=== PATIENT | female | born 1945 | race Caucasian/White ===

== ENCOUNTER → 2017-06-23 11:12 | Outpatient (CLI) | payer MEDICARE, SELFPAY ==
[2017-06-23 11:19] LABS: Adenovirus,PCR Not Detected (NotDetected); Bordetella Pertussis Not Detected (NotDetected); Chlamydophila Pneumoniae, PCR Not Detected (NotDetected); Coronavirus 229E Not Detected (NotDetected); Coronavirus NL63 Not Detected (NotDetected); Coronavirus OC43 Not Detected (NotDetected); Coronovirus HKU1,PCR Not Detected (NotDetected); Human Metapneumovirus Not Detected (NotDetected); Influenza A, PCR Not Detected (NotDetected); Influenza AH1, 2009 Not Detected (NotDetected); Influenza AH1, PCR Not Detected (NotDetected); Influenza AH3,PCR Not Detected (NotDetected); Influenza B, PCR Not Detected (NotDetected); Mycoplasma Pneumoniae, PCR Not Detected (NotDected); Parainfluenza 1, PCR Not Detected (NotDetected); Parainfluenza 2, PCR Not Detected (NotDetected); Parainfluenza 3, PCR Not Detected (NotDetected); Parainfluenza 4, PCR Not Detected (NotDetected); Respiratory Syncytial Virus Not Detected (NotDetected)
[2017-06-23 13:50] LABS: Basophils # 0.1 K/mm3 (0-0.2); Basophils % 0.8 % (0.1-2.0); Eosinophils # 0.2 K/mm3 (0.0-0.4); Eosinophils % 2.4 % (0.1-12.0); Hematocrit 40.9 % (37.0-47.0); Hemoglobin 13.2 g/dL (12.2-16.2); Lymphocytes # 4.6 K/mm3 (0.7-4.5); Mean Corpuscular HGB Conc 32.2 g/dL (31.8-35.4); Mean Corpuscular Hemoglobin 31.4 pg (27.0-31.2); Mean Corpuscular Volume 97.7 fl (81-99); Mean Platelet Volume 8.5 fl (7.4-10.4); Monocytes # 0.6 K/mm3 (0.1-1.0); Monocytes % 5.9 % (1.7-9.3); Neutrophils # 4.3 K/mm3 (1.8-7.8); Neutrophils % 43.9 % (37.0-80.0); Platelet Count 373 K/mm3 (142-424); Red Blood Count 4.19 M/mm3 (4.20-5.40); Red Cell Distribution Width 12.6 % (11.5-17.5); White Blood Count 9.7 K/mm3 (4.8-10.8)
[2017-06-23 14:00] LABS: Erythrocyte Sedimentation Rate 12 mm/hr (0-30)
[2017-06-23 14:16] LABS: Monoscreen (Rapid) Negative (Negative)
[2017-06-23 14:32] LABS: Alanine Aminotransferase 28 U/L (12-78); Albumin Level 3.7 gm/dL (3.4-5.0); Albumin/Globulin Ratio 1.2 (1.1-1.8); Alkaline Phosphatase 117 U/L (46-116); Anion Gap 11.3 mEq/L (5-15); Aspartate Amino Transferase 15 U/L (15-37); Bilirubin,Total 0.2 mg/dL (0.2-1.0); Blood Urea Nitrogen 17 mg/dL (7-18); Carbon Dioxide 29 mmol/L (21.0-32.0); Chloride 107 mmol/L (98-107); Cholesterol 233 mg/dL (140-200); Creatinine,Serum 0.87 mg/dL (0.55-1.02); Estimated Glomerular Filt Rate 64 ml/min (>60); GFR (African American) 77 ML/MIN (>60); Globulin 3.2 gm/dl (1.3-3.2); Glucose 82 mg/dL (74-106); HDL Cholesterol 78 mg/dL (29-89); LDL Cholesterol 140 mg/dL (0-130); Potassium 4.3 mmoL/L (3.5-5.1); Sodium 143 mmol/L (136-145); Thyroid Stimulating Hormone 2.61 uIU/ml (0.358-3.740); Total Protein,Serum 6.9 gm/dL (6.4-8.2); Triglycerides 74 mg/dL (30-200); VLDL Cholesterol 15 mg/dL (0-40)
[2017-06-23 14:40] LABS: C-Reactive Protein < 0.2 mg/L (0.0-0.9)
[2017-06-23 15:09] LABS: Rhinovirus/Enterovirus Detected (NotDetected)
[2017-06-24 18:26] LABS: Antinuclear Antibodies, IFA Negative (.); EBV Ab VCA, IgM <36.0 U/mL (0.0-35.9); Epstein-Barr Virus Early Ag Ab <9.0 U/mL (0.0-8.9); Vitamin B12 228 pg/mL (232-1245)
== END ==
PROVIDERS: PCP Nurse Practitioner Family; Visit Provider Nurse Practitioner Family
DX: R05 Cough (principal); I10 Essential (primary) hypertension; R53.81 Other malaise; R21 Rash and other nonspecific skin eruption
CPT/HCPCS: 36415; 80053; 80061; 82607; 84443; 85025; 85651; 86038; 86140; 86318; 86663; 86664; 86665; 87486; 87581; 87633; 87798

== ENCOUNTER → 2018-05-03 11:43 | Outpatient (CLI) | payer MEDICARE, SELFPAY ==
--- NOTE | 2018-05-03 11:48 | NVE_ITS ---
Venous Exam Indications: 729.5 Pain in limb. IMPRESSIONS 1. There is no evidence of significant Reflux. 2. No evidence of deep or superficial vein thrombosis involving the right lower extremity Right lower extremity venous duplex evaluation. Doppler flow study including spectral analysis, color and braga scale imaging. Location: Vascular laboratory. Patient status: Outpatient. Tables: Venous flow and imaging: + +-------+ + Location Overall Flow properties + +-------+ + Right common femoral Patent Normal phasicity; spontaneous; normal augmentation; compressible + +-------+ + Right saphenofemoral junction Patent Compressible + +-------+ + Right profunda femoral Patent Compressible + +-------+ + Right femoral Patent Normal phasicity; spontaneous; normal augmentation; compressible + +-------+ + Right greater saphenous Patent Normal phasicity; spontaneous; normal augmentation; compressible + +-------+ + Right popliteal Patent Normal phasicity; spontaneous; normal augmentation; compressible + +-------+ + Right posterior tibial Patent Compressible + +-------+ + Right peroneal Patent Compressible + +-------+ + Right gastrocnemius Patent Compressible + +-------+ + Right soleal Patent Compressible + +-------+ + (Report amended ) Electronically signed by: Edmar Wall [id number]
--- NOTE | 2018-05-03 12:46 | XR_ITS ---
XR knee RT 3V HISTORY: ITS.REASON: RT LEG PAIJN ORDERING PHYSICIAN: Mary Dobbins PATIENT AGE: 72 years COMPARISON: None FINDINGS: No fracture or dislocation. No lytic or blastic change. Normal mineralization. There are mild osteoarthritic changes of the medial compartment with slight decrease in the joint space and minimal osteophyte formation. Otherwise negative. IMPRESSION: Mild osteoarthritis of the medial compartment
--- NOTE | 2018-05-03 12:46 | XR_ITS ---
XR ankle RT min 3V HISTORY: Right ankle pain ORDERING PHYSICIAN: Mary Dobbins PATIENT AGE: 72 years Comparison: None FINDINGS: No fracture or dislocation. No lytic or blastic change. There is normal mineralization.. The joint spaces are well-preserved. No significant degenerative/arthritic changes. No erosive changes evident. There is a well-circumscribed small calcific density at the tip of the lateral malleolus and may be due to an old avulsion fracture. No acute fracture evident. No soft tissue swelling. IMPRESSION: 1. No acute finding. 2. Old lateral malleolus avulsion fracture
--- NOTE | 2018-05-03 12:47 | XR_ITS ---
XR hip RT 2-3V w/pelvis HISTORY: ITS.REASON: RT LEG PAIN ORDERING PHYSICIAN: Mary Dobbins PATIENT AGE: 72 years COMPARISON: None FINDINGS: No fracture or dislocation is evident. No significant degenerative change. No lytic or blastic change. Unremarkable soft tissues IMPRESSION: Negative hip
--- NOTE | 2018-05-03 12:47 | XR_ITS ---
XR femur RT 2V CLINICAL INDICATION: ITS.REASON: RT LEG PAIN ORDERING PHYSICIAN: Mary Dobbins PATIENT AGE: 72 years Comparison: None FINDINGS: No fracture or dislocation. No lytic or blastic change. There are mild osteoarthritic changes at the medial compartment of the knee IMPRESSION: Mild osteoarthritis of the medial compartment of the knee otherwise negative femur
--- NOTE | 2018-05-03 12:47 | XR_ITS ---
EXAM: XR lumbar spine min 4V HISTORY: Pain ORDERING PHYSICIAN: Mary Dobbins PATIENT AGE: 72 years COMPARISON: None FINDINGS: Normal alignment. No fracture or dislocation. No lytic or blastic change. There is minimal lumbar curvature convex left. Mild degenerative disc disease is present at L3-L4 and L4-L5 with moderate degenerative disc disease at L5-S1. There are mild facet hypertrophic changes at L5-S1. IMPRESSION: 1. No acute finding. 2. Lumbar spondylosis with degenerative disc disease and facet arthritic change
[2018-05-03 12:49] LABS: Basophils # 0.1 K/mm3 (0-0.2); Basophils % 1.2 % (0.1-2.0); Eosinophils # 0.1 K/mm3 (0.0-0.4); Eosinophils % 1.3 % (0.1-12.0); Hematocrit 40.5 % (37.0-47.0); Hemoglobin 12.5 g/dL (12.2-16.2); Lymphocytes # 3.7 K/mm3 (0.7-4.5); Lymphocytes % 43.3 % (10-50); Mean Corpuscular Hemoglobin 30.5 pg (27.0-31.2); Mean Corpuscular Volume 98.4 fl (81-99); Mean Platelet Volume 7.6 fl (7.4-10.4); Monocytes # 0.5 K/mm3 (0.1-1.0); Monocytes % 5.4 % (1.7-9.3); Neutrophils # 4.1 K/mm3 (1.8-7.8); Neutrophils % 48.8 % (37.0-80.0); Platelet Count 331 K/mm3 (142-424); Red Blood Count 4.11 M/mm3 (4.20-5.40); Red Cell Distribution Width 13.1 % (11.5-17.5); White Blood Count 8.4 K/mm3 (4.8-10.8)
--- NOTE | 2018-05-03 12:49 | XR_ITS ---
XR tibia fibula RT 2V CLINICAL INDICATION: ITS.REASON: RT LEG PAIN ORDERING PHYSICIAN: Mary Dobbins PATIENT AGE: 72 years Comparison: None FINDINGS: Minimal osteoarthritic change of the medial compartment of the knee. Old avulsion fracture of the tip of the lateral malleolus. Remaining tib-fib has an unremarkable appearance. IMPRESSION: No acute finding
[2018-05-03 13:19] LABS: D-Dimer 105 ng/mL (0-400)
[2018-05-03 13:56] LABS: Erythrocyte Sedimentation Rate 18 mm/hr (0-30)
[2018-05-03 14:17] LABS: Alanine Aminotransferase 26 U/L (12-78); Albumin Level 3.8 gm/dL (3.4-5.0); Albumin/Globulin Ratio 1.2 (1.1-1.8); Alkaline Phosphatase 101 U/L (46-116); Aspartate Amino Transferase 16 U/L (15-37); Bilirubin,Total 0.2 mg/dL (0.2-1.0); Blood Urea Nitrogen 9 mg/dL (7-18); Calcium 9.4 mg/dL (8.5-10.1); Carbon Dioxide 30 mmol/L (21.0-32.0); Chloride 105 mmol/L (98-107); Chol/HDL Ratio 3.5 (1-3.5); Cholesterol 238 mg/dL (140-200); Creatinine,Serum 0.79 mg/dL (0.55-1.02); Estimated Glomerular Filt Rate 71 ml/min (>60); GFR (African American) 86 ML/MIN (>60); Globulin 3.2 gm/dl (1.3-3.2); Glucose 85 mg/dL (74-106); HDL Cholesterol 68 mg/dL (29-89); LDL Cholesterol 135 mg/dL (0-130); Sodium 144 mmol/L (136-145); Triglycerides 175 mg/dL (30-200); VLDL Cholesterol 35 mg/dL (0-40)
== END ==
PROVIDERS: PCP Nurse Practitioner Family; Visit Provider Nurse Practitioner Family
DX: M79.604 Pain in right leg (principal); M25.551 Pain in right hip; M79.10 Myalgia, unspecified site; E78.00 Pure hypercholesterolemia, unspecified
CPT/HCPCS: 36415; 72110; 73502; 73552; 73562; 73590; 73610; 80053; 80061; 83880; 85025; 85378; 85651; 93971

== ENCOUNTER → 2022-08-16 23:30 | Outpatient (CLI) | payer MEDICARE, SELFPAY ==
[2022-08-16 16:56] LABS: Basophils # 0.3 K/mm3 (0-0.2); Basophils % 2.9 % (0.1-2.0); Eosinophils # 0.3 K/mm3 (0.0-0.4); Eosinophils % 2.4 % (0.1-12.0); Hematocrit 44.3 % (37.0-47.0); Hemoglobin 14.2 g/dL (12.2-16.2); Lymphocytes # 3.9 K/mm3 (0.7-4.5); Lymphocytes % 36.2 % (10-50); Mean Corpuscular Hemoglobin 31.7 pg (27.0-31.2); Mean Platelet Volume 8.9 fl (7.4-10.4); Monocytes # 0.4 K/mm3 (0.1-1.0); Neutrophils # 5.9 K/mm3 (1.8-7.8); Neutrophils % 54.5 % (37.0-80.0); Platelet Count 363 K/mm3 (142-424); Red Blood Count 4.48 M/mm3 (4.20-5.40); Red Cell Distribution Width 13.1 % (11.5-17.5); White Blood Count 10.8 K/mm3 (4.8-10.8)
[2022-08-16 17:00] LABS: Alanine Aminotransferase 20 U/L (12-78); Albumin Level 4.5 g/dl (3.5-5.0); Albumin/Globulin Ratio 1.8 (1.1-1.8); Alkaline Phosphatase 105 U/L (38-126); Anion Gap 12.4 mEq/L (5-15); Aspartate Amino Transferase 29 U/L (14-36); Bilirubin,Total 0.6 mg/dl (0.2-1.3); Blood Urea Nitrogen 15 mg/dl (7-17); Calcium 9.2 mg/dl (8.4-10.2); Carbon Dioxide 28 mmol/L (22.0-30.0); Chloride 102 mmol/L (98-107); Estimated Glomerular Filt Rate 61 ml/min (>60); GFR (African American) 73 ML/MIN (>60); Globulin 2.5 g/dL (1.3-3.2); Glucose 107 mg/dl (74-100); Potassium 4.4 mmoL/L (3.5-5.1); Sodium 138 mmol/L (136-145)
[2022-08-16 17:17] LABS: T4 (Thyroxine) 7.3 ug/dl (5.53-11.0)
[2022-08-16 17:51] LABS: Erythrocyte Sedimentation Rate 13 mm/hr (0-30)
[2022-08-19 23:52] LABS: Antinuclear Antibodies (ANA) NEGATIVE
== END ==
PROVIDERS: PCP Family Medicine; Visit Provider Family Medicine
DX: L65.9 Nonscarring hair loss, unspecified (principal); R63.4 Abnormal weight loss
CPT/HCPCS: 80053; 84436; 85025; 85651; 86038

== ENCOUNTER 2022-09-15 15:21 | Emergency (ER) | payer MEDICARE, SELFPAY ==
[2022-09-15 15:23] VITALS: BP 149/64; PULSE 75; RESP 17; TEMP 36.8; O2SAT 97; BMI 21.4
--- NOTE | 2022-09-15 15:45 | CT_ITS ---
PROCEDURE INFORMATION: Exam: CT Head Without Contrast Exam date and time: 09/15/2022 3:48 PM Age: 76 years old Clinical indication: Altered mental status/memory loss; Additional info: Changes in mental status TECHNIQUE: Imaging protocol: Computed tomography of the head without contrast. Radiation optimization: All CT scans at this facility use at least one of these dose optimization techniques: automated exposure control; mA and/or kV adjustment per patient size (includes targeted exams where dose is matched to clinical indication); or iterative reconstruction. REPORTING DATA: Count of CT and Cardiac NM exams in prior 12 months: This patient has received 0 known CTs and 0 known cardiac nuclear medicine studies in the 12 months prior to the current study. COMPARISON: No relevant prior studies available. FINDINGS: Brain: Age-related involutional changes and chronic microvascular ischemic disease. No evidence for acute transcortical infarct. No mass effect or midline shift. No extra-axial collection. No acute intracranial hemorrhage. Basal cisterns are patent. Cerebral ventricles: No ventriculomegaly. Paranasal sinuses: Visualized sinuses are unremarkable. No fluid levels. Mastoid air cells: Visualized mastoid air cells are well aerated. Orbital cavities: Bilateral cataract surgery. Bones/joints: Unremarkable. No acute fracture. Soft tissues: Unremarkable. IMPRESSION: No evidence for acute transcortical infarct, acute intracranial hemorrhage, or mass effect.
[2022-09-15 16:33] LABS: Alanine Aminotransferase 27 U/L (12-78); Albumin Level 4.5 g/dl (3.5-5.0); Albumin/Globulin Ratio 1.6 (1.1-1.8); Alkaline Phosphatase 85 U/L (38-126); Anion Gap 8.8 mEq/L (5-15); Aspartate Amino Transferase 34 U/L (14-36); Bilirubin,Total 0.5 mg/dl (0.2-1.3); Blood Urea Nitrogen 10 mg/dl (7-17); Calcium 9.4 mg/dl (8.4-10.2); Carbon Dioxide 29 mmol/L (22.0-30.0); Chloride 108 mmol/L (98-107); Creatinine Clearance Estimated 39 mL/min (50-200); Estimated Glomerular Filt Rate 70 ml/min (>60); GFR (African American) 84 ML/MIN (>60); Globulin 2.8 g/dL (1.3-3.2); Glucose 97 mg/dl (74-100); Potassium 3.8 mmoL/L (3.5-5.1); Sodium 142 mmol/L (136-145); Total Protein,Serum 7.3 g/dl (6.3-8.2)
[2022-09-15 16:34] LABS: Basophils # 0.1 K/mm3 (0-0.2); Basophils % 1.2 % (0.1-2.0); Eosinophils # 0.3 K/mm3 (0.0-0.4); Eosinophils % 3.1 % (0.1-12.0); Hematocrit 44.1 % (37.0-47.0); Hemoglobin 13.8 g/dL (12.2-16.2); Lymphocytes # 3.4 K/mm3 (0.7-4.5); Lymphocytes % 39.6 % (10-50); Mean Corpuscular HGB Conc 31.2 g/dL (31.8-35.4); Mean Corpuscular Hemoglobin 31.2 pg (27.0-31.2); Mean Corpuscular Volume 99.8 fl (81-99); Mean Platelet Volume 8.4 fl (7.4-10.4); Monocytes # 0.5 K/mm3 (0.1-1.0); Monocytes % 5.2 % (1.7-9.3); Neutrophils # 4.4 K/mm3 (1.8-7.8); Neutrophils % 50.9 % (37.0-80.0); Platelet Count 348 K/mm3 (142-424); Red Blood Count 4.42 M/mm3 (4.20-5.40); Red Cell Distribution Width 13.3 % (11.5-17.5); White Blood Count 8.7 K/mm3 (4.8-10.8)
--- NOTE | 2022-09-15 16:56 | CT_ITS ---
PROCEDURE INFORMATION: Exam: CTA Head With Contrast, Arteriography Exam date and time: 09/15/2022 5:18 PM Age: 76 years old Clinical indication: Memory loss; Additional info: Word finding difficulty TECHNIQUE: Imaging protocol: Computed tomographic angiography of the head with contrast. Exam focused on the arteries. 3D rendering (Not supervised by radiologist): MIP and/or 3D reconstructed images were created by the technologist. Radiation optimization: All CT scans at this facility use at least one of these dose optimization techniques: automated exposure control; mA and/or kV adjustment per patient size (includes targeted exams where dose is matched to clinical indication); or iterative reconstruction. Contrast material: ISOVUE 370; Contrast volume: 100 ml; Contrast route: INTRAVENOUS (IV); REPORTING DATA: Count of CT and Cardiac NM exams in prior 12 months: This patient has received 0 known CTs and 0 known cardiac nuclear medicine studies in the 12 months prior to the current study. COMPARISON: CT HEAD/BRAIN WO CON 09/15/2022 3:48 PM FINDINGS: ANTERIOR CIRCULATION: Right internal carotid artery: Intracranial segment is patent with no significant stenosis. No aneurysm. Right middle cerebral artery: No occlusion or significant stenosis. No aneurysm. Right anterior cerebral artery: No occlusion or significant stenosis. No aneurysm. Left internal carotid artery: Intracranial segment is patent with no significant stenosis. No aneurysm. Left middle cerebral artery: No occlusion or significant stenosis. No aneurysm. Left anterior cerebral artery: No occlusion or significant stenosis. No aneurysm. POSTERIOR CIRCULATION: Right vertebral artery: No occlusion or significant stenosis. No aneurysm. Left vertebral artery: No occlusion or significant stenosis. No aneurysm. Basilar artery: No occlusion or significant stenosis. No aneurysm. Right posterior cerebral artery: No occlusion or significant stenosis. No aneurysm. Left posterior cerebral artery: No occlusion or significant stenosis. No aneurysm. Brain: No definite mass, mass effect, or midline shift. Cerebral ventricles: No ventriculomegaly. Bones/joints: Unremarkable. No acute fracture. Soft tissues: Unremarkable. IMPRESSION: No significant stenosis or aneurysm.
--- NOTE | 2022-09-15 16:56 | CT_ITS ---
PROCEDURE INFORMATION: Exam: CTA Neck With Contrast Exam date and time: 09/15/2022 5:18 PM Age: 76 years old Clinical indication: Memory loss; Additional info: Word finding difficulty TECHNIQUE: Imaging protocol: Computed tomographic angiography of the neck with contrast. 3D rendering (Not supervised by radiologist): MIP and/or 3D reconstructed images were created by the technologist. Radiation optimization: All CT scans at this facility use at least one of these dose optimization techniques: automated exposure control; mA and/or kV adjustment per patient size (includes targeted exams where dose is matched to clinical indication); or iterative reconstruction. Contrast material: ISOVUE 370; Contrast volume: 100 ml; Contrast route: INTRAVENOUS (IV); REPORTING DATA: Count of CT and Cardiac NM exams in prior 12 months: This patient has received 0 known CTs and 0 known cardiac nuclear medicine studies in the 12 months prior to the current study. COMPARISON: CT HEAD/BRAIN WO CON 09/15/2022 3:48 PM FINDINGS: Right common carotid artery: No stenosis. No dissection or occlusion. Right internal carotid artery: No stenosis of the extracranial segment. No dissection or occlusion. Right external carotid artery: No occlusion or stenosis of the origin. Left common carotid artery: No stenosis. No dissection or occlusion. Left internal carotid artery: No stenosis of the extracranial segment. No dissection or occlusion. Left external carotid artery: No occlusion or stenosis of the origin. Right vertebral artery: No stenosis. No dissection or occlusion. Left vertebral artery: No stenosis. No dissection or occlusion. Soft tissues: Normal. No significant soft tissue swelling. Bones/joints: No acute fracture. IMPRESSION: No significant stenosis. No evidence of acute dissection. REFERENCES: NASCET CRITERIA. The degree of stenosis in the cervical segment of the internal carotid artery is based on NASCET criteria. Normal is no stenosis. Mild is less than 50% stenosis. Moderate is 50-69% stenosis. Severe is 70% to 99% stenosis. Total occlusion is no detectable patent lumen.
--- NOTE | 2022-09-15 17:12 | PC.NURSE ---
URINE SENT TO LAB
--- NOTE | 2022-09-15 17:16 | PC.NURSE ---
PT GOING TO CT
--- NOTE | 2022-09-15 17:22 | HMH.EDGENADL ---
Discharge Plan Disposition Patient Disposition: Home, Self-Care Condition: Good Prescriptions Prescriptions: No Action multivitamin Tablet 1 tab PO DAILY sulfamethoxazole-trimethoprim [Bactrim DS] 800-160 mg tablet 1 tab PO BID 7 Days Qty: 14 0RF paroxetine HCl [Paxil] 40 mg tablet 40 mg PO DAILY 30 Days Qty: 30 3RF Referrals Follow up/Referrals: Delfin Almanzar MD [Primary Care Provider] - See instructions Activity Restrictions/Add. Instructions Additional Instructions/Restrictions: Follow-up with your family doctor regarding this visit to the emergency department. If you have any other concerning signs or symptoms, return to the ER for further evaluation. Clinical Impressions Clinical Impression: Confusion Instructions Patient Instructions: DI for Altered Mental Status Discharge ED Provider: Wilmer Unger General Adult [facility] General Chief complaint: Neuro Symptoms/Deficit Stated complaint: Slow with words,left side of head hrbp Seen by Provider: 09/15/22 15:30 Mode of Arrival: Ambulatory Source of Information: Patient Limitations: No Limitations Description of Symptoms (Recalled from ER Triage Doc. by RN): pt to ED with daughter for increased forgetfulness and left sided facial heaviness x 3 days. on assessment pt is alert and oriented x 4 and demonstrates no unilateral deficits at this time. pt reports she feels loopy sometimes and complains of losing her keys more often than usual. History of Present Illness HPI narrative: This is a 76-year-old female with no relevant medical history presenting with left-sided head fullness. This has been progressive over the past 3 weeks. 3 weeks prior to arrival, patient mother was moved out of patient's house into her sister's house. Since that time, she has had more last progression of this feeling of head fullness. She had speech difficulty started about 2-1/2 weeks ago, so they were supposed to see primary care doctor today about it, but they recommended coming to the ER given speech finding difficulty and feeling of left-sided head fullness. No upper or lower extremity deficits, bowel or bladder dysfunction, vision changes, dysphagia, chest pain, shortness of breath, or any other concerns. Patient denies any head trauma. Not on anticoagulation. No history of blood clots, strokes, or any other concerns. Related Data Home Medications Medication Instructions Recorded Confirmed multivitamin 1 tab PO DAILY 08/16/22 08/16/22 Previous Rx's Medication Instructions Recorded paroxetine HCl 40 mg tablet (Paxil) 40 mg PO DAILY 30 days #30 tabs 08/16/22 sulfamethoxazole 800 1 tab PO BID 7 days #14 tabs 08/16/22 mg-trimethoprim 160 mg tablet (Bactrim DS) Allergies Allergy/AdvReac Type Severity Reaction Status Date / Time cefaclor [From [facility]] Allergy rash Verified 08/16/22 13:44 Penicillins AdvReac hearing Verified 08/16/22 13:44 issues PFSH [facility] Disclaimer: The information contained in this section may have been updated after the patient was seen, as this information can be updated by other users. Medical History (Updated 09/15/22 @ 18:11 by Wilmer Unger MD) Anxiety Depression Surgical History (Updated 08/16/22 @ 13:45 by Clarisse Acosta LPN) History of History of dental surgery Family History (Updated 08/16/22 @ 13:47 by Clarisse Acosta LPN) Father No problems noted. Daughter Hypertension Stroke Social History (Updated 08/16/22 @ 13:50 by Clarisse Acosta LPN) Smoking Status: Never smoker alcohol intake: current substance use type: denies use current occupational status: retired Travel in the last 8 weeks: None household members: other details: mother housing: house ROS Obtained: Yes All systems reviewed & no additional complaints except as documented Physical Exam General General appearance: alert and in no apparent distress Head Head exam: atraumati
[2022-09-15 17:28] LABS: Microscopic, Urine URINE MICROSCOPIC (MICROSCOPIC)
[2022-09-15 17:34] LABS: Appearance,Urine CLEAR (Clear); Bilirubin,Urine Negative (Negative); Blood, Urine Negative (Negative); Color,Urine YELLOW (Yellow); Glucose,Urine (UA) Negative (Negative); Ketones,Urine Negative (Negative); Leukocyte Esterase,Urine Negative (Negative); Nitrate,Urine Negative (Negative); PH,Urine 5.5 (5.0-8.5); Protein,Urine Negative (Negative); Urobilinogen,Urine 0.2 EU/dl (0.2)
[2022-09-15 18:00] VITALS: BP 169/81; PULSE 76; RESP 20; O2SAT 96
[2022-09-15 18:02] LABS: RBC,Urine Occasional #/hpf (0-3); Squamous Epithelial Cell,Urine Occasional #/hpf (0-5)
[2022-09-15 18:19] VITALS: BP 169/81; PULSE 79; RESP 17; TEMP 36.7; O2SAT 97
[2022-09-15 18:28] VITALS: BP 147/53; PULSE 66; RESP 97; TEMP 36.7
== END 2022-09-15 18:30 | disposition home or self-care (01) ==
PROVIDERS: Emergency Provider Emergency Medicine; PCP Family Medicine
DX: R41.82 Altered mental status, unspecified (principal)
CPT/HCPCS: 70450; 70496; 70498; 80053; 81001; 85025; 99285; Q9967

== ENCOUNTER → 2023-04-29 09:15 | Outpatient (CLI) | payer MEDICARE, SELFPAY | PROVIDERS: PCP Family Medicine; Visit Provider Family Medicine | DX: R50.9 Fever, unspecified (principal); R06.2 Wheezing; R09.89 Other specified symptoms and signs involving the circulatory and respiratory systems | CPT/HCPCS: 87635 ==

== ENCOUNTER 2024-01-12 09:30 | Outpatient (CLI) | payer MEDICARE, SELFPAY ==
[2024-01-12 16:45] LABS: Basophils # 0.1 K/mm3 (0-0.2); Basophils % 1.5 % (0.1-2.0); Eosinophils # 0.3 K/mm3 (0.0-0.4); Hemoglobin 13.5 g/dL (12.2-16.2); Lymphocytes % 33.7 % (10-50); Mean Corpuscular HGB Conc 29.9 g/dL (31.8-35.4); Mean Corpuscular Hemoglobin 31.3 pg (27.0-31.2); Mean Corpuscular Volume 104.6 fl (81-99); Mean Platelet Volume 8.8 fl (7.4-10.4); Monocytes # 0.5 K/mm3 (0.1-1.0); Monocytes % 4.9 % (1.7-9.3); Neutrophils # 5.2 K/mm3 (1.8-7.8); Neutrophils % 56.9 % (37.0-80.0); Platelet Count 360 K/mm3 (142-424); Red Blood Count 4.31 M/mm3 (4.20-5.40); Red Cell Distribution Width 13.4 % (11.5-17.5); White Blood Count 9.1 K/mm3 (4.8-10.8)
[2024-01-12 17:05] LABS: Alanine Aminotransferase 12 U/L (12-78); Albumin/Globulin Ratio 1.5 (1.1-1.8); Alkaline Phosphatase 99 U/L (38-126); Anion Gap 10.4 mEq/L (5-15); Aspartate Amino Transferase 24 U/L (14-36); Bilirubin,Total 0.7 mg/dl (0.2-1.3); Blood Urea Nitrogen 9 mg/dl (7-17); Calcium 9.6 mg/dl (8.4-10.2); Carbon Dioxide 25 mmol/L (22.0-30.0); Chloride 109 mmol/L (98-107); Estimated Glomerular Filt Rate 69 ml/min (>60); GFR (African American) 84 ML/MIN (>60); Globulin 2.7 g/dL (1.3-3.2); Glucose 99 mg/dl (74-100); Potassium 4.4 mmoL/L (3.5-5.1); Sodium 140 mmol/L (136-145); Total Protein,Serum 6.7 g/dl (6.3-8.2)
[2024-01-12 17:24] LABS: Hemoglobin A1C 5.4 % (4.0-6.0)
[2024-01-12 17:53] LABS: Erythrocyte Sedimentation Rate 16 mm/hr (0-30)
[2024-01-12 18:04] LABS: Iron 105 ug/dL (37-170)
[2024-01-12 18:13] LABS: Total Iron Binding Capacity 281 ug/dL (265-497)
[2024-01-13 08:52] LABS: Triiodothryronine (T3) Uptake 33 % (23.5-40.5)
[2024-01-13 08:53] LABS: T4 (Thyroxine) 9.1 ug/dl (5.53-11.0)
[2024-01-13 09:07] LABS: Thyroid Stimulating Hormone 1.46 uIU/mL (0.465-4.68)
== END 2024-01-12 23:59 | disposition home or self-care (01) ==
LOC: LAB.DROPOF 01-14 16:30
PROVIDERS: PCP Nurse Practitioner Family; Visit Provider Nurse Practitioner Family
DX: R63.4 Abnormal weight loss (principal); R73.09 Other abnormal glucose; E83.10 Disorder of iron metabolism, unspecified
CPT/HCPCS: 80050; 80053; 83036; 83540; 83550; 84436; 84443; 84479; 85025; 85651; 86140

== ENCOUNTER 2024-02-05 12:03 | Emergency (ER) | payer MEDICARE, SELFPAY ==
--- NOTE | 2024-02-05 12:41 | XR_ITS ---
PROCEDURE INFORMATION: Exam: XR Chest Exam date and time: 02/05/2024 12:39 PM Age: 78 years old Clinical indication: Cough; Additional info: Cough, congestion TECHNIQUE: Imaging protocol: Radiologic exam of the chest. Views: 2 views. COMPARISON: CT ANGIO NECK 09/15/2022 5:18 PM FINDINGS: Lungs: Unremarkable. No consolidation. Pleural spaces: Unremarkable. No pleural effusion. No pneumothorax. Heart/Mediastinum: Unremarkable. No cardiomegaly. Bones/joints: Unremarkable. IMPRESSION: No acute findings.
[2024-02-05 12:43] VITALS: BP 116/65; PULSE 55; RESP 16; TEMP 36.6; O2SAT 97; BMI 18.1
[2024-02-05 12:48] LABS: Coronavirus 19, PCR Not Detected (NotDetected); Influenza A, PCR Not Detected (NotDetected); Influenza B, PCR Not Detected (NotDetected)
--- NOTE | 2024-02-05 12:48 | EXP.UTC ---
Discharge Plan Disposition Patient Disposition: Home, Self-Care Condition: Good Prescriptions Prescriptions: New azithromycin [Zithromax] 250 mg tablet 250 mg PO UD DOSE PK Qty: 6 0RF Rx Instructions: Take two (2) tablets today, then one (1) tablet days #2 thru #5 benzonatate 100 mg capsule 100 mg PO TIDP PRN (Reason: Cough) Qty: 30 0RF methylprednisolone 4 mg Tablets,Dose Pack 4 mg PO DIRECTED 6 Days Qty: 21 0RF Rx Instructions: Take 1 pack as directed for 6 days guaifenesin [Mucinex] 600 mg tablet extended release 12hr 600 - 1,200 mg PO BIDP PRN (Reason: Congestion) Qty: 30 0RF No Action albuterol sulfate 90 mcg/actuation HFA aerosol inhaler 2 inh inhalation QID Qty: 6.7 2RF azelastine 137 mcg (0.1 %) aerosol,spray 2 spray intranasal BID Qty: 30 3RF Rx Instructions: administer into each nostril multivitamin Tablet 1 tab PO DAILY paroxetine HCl [Paxil] 40 mg tablet 40 mg PO DAILY 30 Days Qty: 30 3RF Referrals Follow up/Referrals: Juliane Alex APRN [Primary Care Provider] - See instructions Activity Restrictions/Add. Instructions Additional Instructions/Restrictions: Drink plenty of fluids. Take tylenol or ibuprofen for pain or fever. Take the medications as directed. Follow up with your regular doctor. GO TO THE ER FOR ANY WORSENING SYMPTOMS Clinical Impressions Clinical Impression: Acute bronchitis, Pharyngitis, Acute viral syndrome Instructions Patient Instructions: Coronavirus Disease 2019, Preventing the Spread of Coronavirus Discharge Instructions Print Language Print Language: Turkmen Discharge ED Provider: [place] Meraz [facility] [place] General Stated complaint: congestion fever sore throat cough Mode of Arrival: Ambulatory Source of Information: Patient Limitations: No Limitations Time Seen by Provider: 02/05/24 12:47 Description of Symptoms (Recalled from Triage Doc. by RN): Patient reports COVID symptoms. Cough, congestion and fever. HEENT Symptoms (Recalled from RN notes): Yes Resp Symptoms (Recalled from RN notes): No Skin Symptoms (Recalled from RN notes): No MS Symptoms (Recalled from RN notes): No Functional Status (Recalled from RN notes): wnl History of Present Illness Provider Complaint: She states that for the past 10 days she has had fever, cough, chest congestion, malaise, and sore throat. Related Data Home Medications ?Medication ?Instructions ?Recorded ?Confirmed multivitamin 1 tab PO DAILY 08/16/22 01/12/24 Previous Rx's ?Medication ?Instructions ?Recorded albuterol sulfate 90 mcg/actuation 2 inh inhalation QID #6.7 grams 05/13/23 aerosol inhaler paroxetine HCl 40 mg tablet (Paxil) 40 mg PO DAILY 30 days #30 tabs 08/10/23 azelastine 137 mcg (0.1 %) nasal 2 spray intranasal BID allergy 08/18/23 spray symptoms #30 mL azithromycin 250 mg tablet 250 mg PO UD DOSE PK #6 tabs 02/05/24 (Zithromax) benzonatate 100 mg capsule 100 mg PO TIDP PRN Cough #30 caps 02/05/24 guaifenesin 600 mg tablet, 600 - 1,200 mg (1 - 2 x 600 mg) PO 02/05/24 extended release 12 hr (Mucinex) BIDP PRN Congestion #30 tabs methylprednisolone 4 mg tablets in 4 mg PO DIRECTED 6 days #21 tabs 02/05/24 a dose pack Allergies Allergy/AdvReac Type Severity Reaction Status Date / Time cefaclor [From [facility]] Allergy rash Verified 01/12/24 09:21 Penicillins AdvReac hearing Verified 01/12/24 09:21 issues Worker's Comp Is this a Worker's Comp case?: No [facility] Disclaimer: The information contained in this section may have been updated after the patient was seen, as this information can be updated by other users. Medical History Dizziness Depression Anxiety Surgical History History of dental surgery History of Family History Father No problems noted. Daughter Hypertension Stroke Social History Smoking Status: Never smoker alcohol intake: current alcohol intake frequency: holidays/special occasions only substance use type: denies use current occupational status: retired Travel in the last 8 weeks: None household members: other details: mother housing: house ROS Obtained: Yes All systems reviewed & no additional complaints except as documented Constitutional Constitutional: Reports chills and Reports fever(s) Eyes Eyes: Denies eye discharge ENT Ears, Nose, Mouth, and Throat: Reports as per HPI Cardiovascular Cardiovascular: Denies chest pain Respiratory Respiratory: Denies chest congestion and Reports cough Gastrointestinal Gastrointestingal: Reports nausea; Denies abdominal pain, constipation, cramping, diarrhea or vomiting Musculoskeletal Musculoskeletal: Denies arthralgias Integumentary/Breasts Skin/Breast: Denies rash Neurologic Neurologic: Denies paresthesias Physical Exam General General appearance: alert and in no apparent distress Eye Eye exam: Present normal appearance, PERRL and EOMI ENT ENT exam: Present mucous membranes moist and normal external ear exam Expanded ENT Exam External ear exam: Present normal external inspection TM/Canal exam: Bilateral TM: erythema and bulging Nose exam: Absent sinus tenderness Nasal speculum exam: Bilateral: normal Mouth exam: Present normal external inspection; Absent drooling Teeth exam: Present normal inspection Throat exam: Present tonsillar erythema and tonsillomegaly Neck Neck exam: Present normal inspection, full ROM and trachea midline; Absent tenderness, lymphadenopathy or thyromegaly Chest Chest inspection: Present normal inspection and symmetric chest wall rise; Absent tenderness or rash Respiratory Respiratory exam: Present normal lung sounds bilaterally; Absent respiratory distress, wheezes, stridor or accessory muscle use Cardiovascular Cardiovascular exam: Present regular rate, normal rhythm and normal heart sounds Abdominal Exam Abdominal exam: Present soft; Absent distention, tenderness, guarding, rebound or rigidity Extremities Exam Extremities exam: Present normal inspection, full ROM and normal capillary refill; Absent tenderness or calf tenderness Back Exam Back exam: Present normal inspection and full ROM; Absent tenderness Neurological Exam Neurological exam: Present alert and oriented X3 Psychiatric Psychiatric exam: Present normal affect and normal mood Skin Skin exam: Present warm, dry, intact and normal color Lymphatic Lymphatic Findings: no adenopathy Medical Decision Making Medical Records Medical records reviewed: No I reviewed the patient's medical records. Ta Inquiry Pt receiving controlled substance: No Vital Signs: 02/05/24 12:43 Temperature 97.8 F Temperature Source Oral Pulse Rate [Radial] 55 L Respiratory Rate 16 Blood Pressure [Right Arm] 116/65 Blood Pressure Mean [Right Arm] 82 Blood Pressure Source [Right Arm] Automatic Cuff Blood Pressure Position [Right Arm] Sitting 02 Sat by Pulse Oximetry 97 Oxygen Delivery Method Room Air Lab Data Lab results reviewed: Yes I reviewed the patient's lab results. Orders (Tests/Meds): ORDERS Category Date Time Status Chest XR 2 view (NOT portable) [XR chest 2V] Stat Exams 02/05/24 12:41 Ordered Rapid PCR Covid and Flu A/B Stat Lab 02/05/24 12:41 Received Radiology Data #1: Image(s): Chest Image Reviewed: Yes I reviewed the patient's radiology image and Yes I have reviewed radiologist's interpretation Preliminary Findings: No Infiltrates Seen Accession No. : [id number] Patient Name / ID : ARA Pryor / [id number] Exam Date : 02/05/2024 12:39:15 ( Final ) Study Comment : Sex / Age : F / 78Y Creator : KANDI GIRON Dictator : Hygiene Teacher : Teacher Theater Arts : KANDI GIRON Approver2 : Report Date : 02/05/2024 13:16:20 My Comment : PROCEDURE INFORMATION: Exam: XR Chest Exam date and time: 02/05/2024 12:39 PM Age: 78 years old Clinical indication: Cough; Additional info: Cough, congestion TECHNIQUE: Imaging protocol: Radiologic exam of the chest. Views: 2 views. COMPARISON: CT ANGIO NECK 09/15/2022 5:18 PM FINDINGS: Lungs: Unremarkable. No consolidation. Pleural spaces: Unremarkable. No pleural effusion. No pneumothorax. Heart/Mediastinum: Unremarkable. No cardiomegaly. Bones/joints: Unremarkable. IMPRESSION: No acute findings.
[2024-02-05 13:41] VITALS: BP 116/65; PULSE 55; RESP 16; TEMP 36.6; O2SAT 97
== END 2024-02-05 13:42 | disposition home or self-care (01) ==
PROVIDERS: Emergency Provider Nurse Practitioner Family; PCP Nurse Practitioner Family
DX: J20.9 Acute bronchitis, unspecified (principal); J02.9 Acute pharyngitis, unspecified; R50.9 Fever, unspecified; R09.89 Other specified symptoms and signs involving the circulatory and respiratory systems; B34.9 Viral infection, unspecified
CPT/HCPCS: 71046; 87636; 99204; 99212; G0463

== ENCOUNTER 2024-12-31 15:23 | Emergency (ER) | payer MEDICARE, SELFPAY ==
[2024-12-31 15:25] VITALS: BP 146/72; PULSE 72; RESP 18; TEMP 36.6; O2SAT 99; BMI 18.8
--- NOTE | 2024-12-31 15:33 | ECG_ITS ---
APPROVED REPORT Exam: Resting ECG HR:63 bpm ECG Measurements Heart Rate 63 AXES MI 118 P 71 QRSd 80 QRS 72 QT 369 T 71 QTc 377 Conclusion SINUS RHYTHM WITH SHORT MI INTERVAL MINIMAL ST DEPRESSION [0.025+ mV ST DEPRESSION] BORDERLINE ECG UNCONFIRMED REPORT Electronically signed by : [place] Monae, 12/31/2024 23:22:27
--- NOTE | 2024-12-31 15:41 | ED_ITS ---
<Statement entered by Ronald Monae MD - 12/31/24 22:48> I was consulted by the RAJEEV, and we discussed the complexity of the problems being addressed. I approved the treatment and management plan for this patient's care in the emergency department, thus performing a substantive portion of the medical decision making. Ronald Monae MD, VILMA, FACEP Discharge Plan Disposition Patient Disposition: Home, Self-Care Condition: Good Prescriptions Prescriptions: New methocarbamol 750 mg tablet 750 mg PO HS Qty: 14 0RF prednisone 20 mg tablet 40 mg PO DAILY 5 Days Qty: 10 0RF No Action paroxetine HCl [Paxil] 40 mg tablet 40 mg PO DAILY 30 Days Qty: 30 3RF valacyclovir [Valtrex] 1 gram tablet 1,000 mg PO TID 7 Days Qty: 21 0RF multivitamin Tablet 1 tab PO DAILY Referrals Follow up/Referrals: Wale Marte MD [Staff Physician, Pain Management] - See instructions Delfin Almanzar MD [Primary Care Provider, Internal Medicine] - See instructions Av Silva [Referring, Medical] - See instructions Activity Restrictions/Add. Instructions Additional Instructions/Restrictions: Please follow-up with your PCP in the upcoming days, for MRI of the cervical spine and physical therapy referral, you were also given pain management and neurosurgery referral if needed after 6 to 8 weeks of conservative treatment. Please take your medications as prescribed. Please take steroid with food, daily, for 5 days, please utilize your muscle relaxer as needed, especially at night as can cause some drowsiness. Please return to the emergency department any worsening signs or symptoms. Clinical Impressions Clinical Impression: Degenerative disc disease, cervical, Cervicalgia, Cervical radiculopathy Instructions Patient Instructions: DI for Cervical Radiculopathy Print Language Print Language: Cymro Discharge ED Provider: Ronald Monae General Adult HPI General Chief complaint: Extremity Problem,Nontraumatic Stated complaint: Left shoulder pain radiating up neck,L arm Time Seen by Provider: 12/31/24 15:34 Mode of Arrival: Ambulatory Source of Information: Patient and Relative Limitations: No Limitations History of Present Illness HPI narrative: 79-year-old female presents to the emergency department accompanied by her daughter for left-sided neck pain/shoulder pain and radicular type symptomatology that extends all the way into her digits, all digits affected, with associated numbness and tingling, no injury or trauma per history, patient states she just woke up with it 4 days ago . Patient denies any chest pain shortness of breath, no fever no chills, no recent sick contacts or illness, no nausea no vomiting no constipation no diarrhea no headache no lightheadedness, no photophobia no phonophobia, no lower back pain, no upper or lower extremity weakness with the exception of some shaking , in her left hand, denies any urinary bladder or bowel dysfunction, no abdominal pain, no hematuria melena hematochezia hematemesis, no urinary symptomatology, patient is current everyday smoker, occasional utilize alcohol, denies any drug use, other past medical history is consistent with anxiety/depression, and osteoarthritis. Initial triage vitals unremarkable. Patient has been utilizing diclofenac and Tylenol with little to no relief of her symptomatology. Please note that above description of symptoms, in this electronic medical record under categorization of recalled from ER triage doctor by RN are reflective of an initial nursing assessment, however, is not reflective of my full history and physical exam that was personally taken and clarified. Consequentially, this preceding description of symptoms, which may include the patient's categorized chief complaint in the EMR, do not reflect my personal clinical impression, and the ultimate description of history of present illness and patient stated complaints should be deferred to this section of the note. Unless stated otherwise or congruent with this section of the note, additional signs, symptoms, or incongruence should be interpreted as inaccurate with my clinical impression. Onset (ago): day(s) Related Data Home Medications ?Medication ?Instructions ?Recorded ?Confirmed multivitamin 1 tab PO DAILY 08/16/2210/28 Previous Rx's ?Medication ?Instructions ?Recorded paroxetine HCl 40 mg tablet (Paxil) 40 mg PO DAILY 30 days #30 tabs 09/14/24 valacyclovir 1 gram tablet 1,000 mg PO TID 7 days #21 tabs 11/08/24 (Valtrex) methocarbamol 750 mg tablet 750 mg PO HS #14 tabs 09/21 prednisone 20 mg tablet 40 mg (2 x 20 mg) PO DAILY 5 days 12/31/24 #10 tabs Allergies Allergy/AdvReac Type Severity Reaction Status Date / Time cefaclor (From [facility]) Allergy rash Verified 11/08/24 12:54 Penicillins AdvReac hearing Verified 11/08/24 12:54 issues [facility] Disclaimer: The information contained in this section may have been updated after the patient was seen, as this information can be updated by other users. Medical History Dizziness Depression Anxiety Surgical History History of dental surgery History of Family History Father No problems noted. Daughter Hypertension Stroke Social History Smoking Status: Current every day smoker alcohol intake: current alcohol intake frequency: holidays/special occasions only substance use type: denies use current occupational status: retired Travel in the last 8 weeks?: None household members: other details: mother housing: house Have you lived/traveled outside [place] in past 30 days?: No Contact w/someone who lives/traveled outside [place] past 30 days?: No Exposure to someone with infectious disease in past 14 days?: No Do you have a fever (greater than 100.4 F or 38 C)?: No Have you tested positive for COVID-19?: No Exposed to someone with COVID-19 in past 14 days?: No Do you have a sore throat?: No Do you have a cough?: No Do you have any weakness?: No Do you have any diarrhea?: No Are you experiencing any unusual bleeding?: No Do you have any muscle aches/pain?: No Do you have any abdominal pain?: No Are you experiencing loss of taste or smell?: No Other Medical History Have you received the Pneumonia Vaccine: No ROS Obtained: Yes All systems reviewed & no additional complaints except as documented Physical Exam General General appearance: alert and in no apparent distress Head Head exam: atraumatic and normocephalic Eye Eye exam: Present PERRL and EOMI ENT ENT exam: Present mucous membranes moist Neck Neck exam: Present normal inspection Chest Chest inspection: Present normal inspection and symmetric chest wall rise Respiratory Respiratory exam: Present normal lung sounds bilaterally; Absent respiratory distress Cardiovascular Cardiovascular exam: Present regular rate and normal rhythm Abdominal Exam Abdominal exam: Present soft; Absent tenderness Extremities Exam Extremities exam: Present normal inspection, full ROM, tenderness and other (Negative empty can sign on the right, pain to palpation over the left shoulder joint region, moves extremity to command, no difficulty moving above the head, otherwise neurovascular intact.) Back Exam Back exam: Present normal inspection, full ROM, tenderness, muscle spasm and paraspinal tenderness; Absent vertebral tenderness, straight leg raise (R) or straight leg raise (L) Comment: Paraspinal tenderness to palpation to the left sided trapezius region/paraspinal regions of the cervical spine, negative C-spine tenderness palpation, negative T-spine and vertebral tenderness as well as L-spine vertebral tenderness palpation, negative T-spine paraspinal and L-spine paraspinal tenderness palpation. Neurological Exam Neurological exam: Present alert, oriented X3 and other (5 out of 5 strength in the bilateral lower extremities, as well as right upper extremity, some decreased peoplesoft analyst strength 4-5 in the left upper extremity, otherwise 5 out of 5 strength in the left upper extremity, no gross sensation deficit, negative Esther sign bilaterally.) Psychiatric Psychiatric exam: Present normal affect Skin Skin exam: Present warm and dry Medical Decision Making Medical Records Medical records reviewed: Yes I reviewed the patient's medical records. Screening: Per USPSTF and CDC recommendations, given the prevalence of disease in our region, it is our hospital?s policy to screen for HIV and viral Hepatitis for all patients aged 18 and over and those with ongoing risk factors. Ta Inquiry Pt receiving controlled substance: Yes Ta was queried for this patient: No Reason not queried -: Emergent pt cond-no time Risks and benefits of using a controlled substance: were discussed with pt by me Vital Signs: 12/31/24 15:25 12/31/24 16:06 Temperature 97.9 F Temperature Source Oral Pulse Rate 66 Pulse Rate [Radial] 72 Respiratory Rate 18 16 Blood Pressure 121/48 L Blood Pressure [Right Arm] 146/72 H Blood Pressure Mean [Right Arm] 96 Blood Pressure Source [Right Arm] Automatic Cuff Blood Pressure Position [Right Arm] Sitting 02 Sat by Pulse Oximetry 99 97 Oxygen Delivery Method Room Air Lab Data Lab results reviewed: Yes I reviewed the patient's lab results. Lab Results 12/31/24 16:04: WBC 7.8, RBC 3.89 L, Hgb 12.8, Hct 37.7, MCV 96.9, MCH 32.9 H, MCHC 34.0, RDW 13.6, Plt Count 288, MPV 10.7 H, Neut % (Auto) 45.0, Lymph % (Auto) 44.5, Edmunds % (Auto) 8.2, Eos % (Auto) 1.0, Baso % (Auto) 1.2, Neut # (Auto) 3.5, Lymph # (Auto) 3.5, Edmunds # (Auto) 0.6, Eos # (Auto) 0.1, Baso # (Auto) 0.1, Sodium 143, Potassium 4.3, Chloride 112 H, Carbon Dioxide 28, Anion Gap 7.3, BUN 9, Creatinine 1.00, Estimated Creat Clear 32, Estimated GFR 53 L, Est GFR ( Amer) 65, Glucose 93, Calcium 9.6, Total Bilirubin 0.3, AST 29, ALT 16, Alkaline Phosphatase 95, Troponin I < 0.01, NT-Pro-B Natriuret Pep 206, Total Protein 6.1 L, Albumin 4.0, Globulin 2.1, Albumin/Globulin Ratio 1.9 H, HIV Ag/Ab Combo Qual Negative 12/31/24 16:04 12/31/24 16:04 Orders (Tests/Meds): ED MEDICATIONS Discontinued Medications Generic Name Dose Route Start Last Admin Trade Name Freq PRN Reason Stop Dose Admin Lidocaine 1 each 12/31/24 16:03 12/31/24 16:33 Lidocaine 5% Transdermal Patch TD 12/31/24 16:04 1 each ONCE ONE Administration Morphine Sulfate 2 mg 12/31/24 16:02 12/31/24 16:34 Morphine 2mg/Ml Syringe IV 12/31/24 16:03 2 mg ONCE ONE Administration Ondansetron HCl 4 mg 12/31/24 16:03 12/31/24 16:34 Ondansetron 4mg/2ml Vial IV 12/31/24 16:04 4 mg ONCE ONE Administration ORDERS Category Date Time Status CT cervical spine wo con Stat Cat Scan 12/31/24 15:46 Completed XR shoulder LT min 2V Stat Exams 12/31/24 15:47 Completed Complete Blood Count Auto Diff Stat Lab 12/31/24 16:04 Completed Comprehensive Metabolic Panel Stat Lab 12/31/24 16:04 Completed HIV Combo Stat Lab 12/31/24 16:04 Completed Hepatitis C Ab Qual. W/ RFX Stat Lab 12/31/24 16:04 Received NT Pro Brain Natriuretic Pep. Stat Lab 12/31/24 16:04 Completed Troponin I Q3H Lab 12/31/24 19:00 Ordered Troponin I Q3H Lab 12/31/24 22:00 Ordered Troponin I Stat Lab 12/31/24 16:04 Completed Medical Decision Narrative: 79-year-old female presents emergency department left-sided neck pain/shoulder pain for 4 days, differential diagnosis include but not limited to, cervicalgia, cervical radiculopathy, degenerative disc disease of cervical spine, herniated nucleus pulposus, rotator cuff tendinopathy, acute shoulder impingement syndrome, osteoarthritis of the left shoulder, shoulder fracture, electrolyte abnormality, ACS, cardiac arrhythmia among others. I discussed this patient's case with the attending physician Dr. Monae Will obtain basic laboratory studies, proBNP, troponin, EKG, CT cervical spine without contrast, left shoulder x-ray, will give Lidoderm patch, 2 mg IV morphine and 4 mg Zofran for pain. CBC unremarkable CMP is unremarkable I reviewed the patient's CT cervical spine without contrast on the corresponding radiologic report, there is moderate disc space narrowing at C6-C7, no malalignment, mild endplate hypertrophy eccentric to the left, at C3-C4, mild left neuroforaminal narrowing, at C4-C5 mild endplate hypertrophic eccentric to the left, moderate left neuroforaminal narrowing, C5-C6, is unremarkable, C6-7 moderate diffuse disc bulge, endplate hypertrophy eccentric to the right, moderate to high-grade right and moderate left neuroforaminal narrowing, C7-T1 unremarkable. Overall multilevel degenerative disc disease. I reviewed the patient's left shoulder x-ray along the corresponding radiologic report, degenerative change without acute bony abnormality. Troponin within normal limits at less than 0.01, proBNP within normal limits. Examination of the patient at approximately 5:15 PM, patient is neurologically intact, has good strength in her bilateral lower and upper extremities, has some degree of cervical degenerative disc disease and multiple areas of neuroforaminal narrowing as well as central canal stenosis, recommend MRI of the cervical spine, with her PCP, physical therapy would also be beneficial to the patient, I will give the patient 750 mg p.o. methocarbamol to take as needed for muscle pain/spasms, also will give patient a short course of prednisone 40 mg p.o. daily for 5 days, for the acute inflammatory phase, patient voiced understanding and agreed with current treatment plan/discharge plan, patient was given strict ED return precautions and follow-up with other providers as directed. Critical Care Critical Care Time Critical Care Time: No
--- NOTE | 2024-12-31 15:46 | CT_ITS ---
FINAL REPORT TECHNIQUE: Axial images were obtained of the cervical spine by computed tomography. Coronal and sagittal reconstruction process performed. This study was performed with techniques to keep radiation doses as low as reasonably achievable (ALARA). Individualized dose reduction techniques using automated exposure control or adjustment of mA and/or kV according to the patient''s size were employed. CLINICAL HISTORY: Neck pain, left UE radiculopathy COMPARISON: None FINDINGS: Cervical vertebrae show normal height. There is moderate disc space narrowing at C6-7. There is no malalignment. C2-3: Unremarkable. C3-4: Mild endplate hypertrophy eccentric to the left. Mild left neural foraminal narrowing. C4-5: Mild endplate hypertrophy eccentric to the left. Moderate left neural foraminal narrowing. C5-6: Unremarkable. C6-7: Moderate diffuse disc bulge. Endplate hypertrophy eccentric to the right. Moderate to high-grade right and moderate left neural foraminal narrowing. C7-T1: Unremarkable. IMPRESSION: Multilevel degenerative disc disease as above. Reviewed, Interpreted and Dictated by Manuel Camacho MD Transcribed by Rita Gar Authenticated and [facility]
--- NOTE | 2024-12-31 15:47 | XR_ITS ---
FINAL REPORT CLINICAL HISTORY: Left-sided shoulder pain COMPARISON: None FINDINGS: LEFT SHOULDER 3 views of the left shoulder were obtained. There is no acute fracture or dislocation. Mild hypertrophic changes of the acromioclavicular joint. Soft tissues are unremarkable. IMPRESSION: Mild degenerative changes without acute bony abnormality. Reviewed, Interpreted and Dictated by Manuel Camacho MD Transcribed by Rita Gar Authenticated and [facility]
[2024-12-31 16:06] VITALS: BP 121/48; PULSE 66; RESP 16; O2SAT 97
[2024-12-31 16:13] LABS: Hematocrit 37.7 % (37.0-47.0); Hemoglobin 12.8 g/dL (12.2-16.2); Immature Granulocytes % 0.1 %; Mean Corpuscular HGB Conc 34.0 g/dL (31.8-35.4); Mean Corpuscular Hemoglobin 32.9 pg (27.0-31.2); Mean Corpuscular Volume 96.9 fl (81-99); Nucleated Red Blood Cells % 0 %; Platelet Count 288 K/mm3 (142-424); Red Blood Count 3.89 M/mm3 (4.20-5.40); Red Cell Distribution Width-SD 48.7 fL; White Blood Count 7.8 K/mm3 (4.8-10.8)
[2024-12-31 16:27] LABS: Alanine Aminotransferase 16 U/L (12-78); Albumin Level 4.0 g/dl (3.5-5.0); Albumin/Globulin Ratio 1.9 (1.1-1.8); Alkaline Phosphatase 95 U/L (38-126); Anion Gap 7.3 mEq/L (5-15); Aspartate Amino Transferase 29 U/L (14-36); Bilirubin,Total 0.3 mg/dl (0.2-1.3); Blood Urea Nitrogen 9 mg/dl (7-17); Calcium 9.6 mg/dl (8.4-10.2); Carbon Dioxide 28 mmol/L (22.0-30.0); Chloride 112 mmol/L (98-107); Creatinine Clearance Estimated 32 mL/min (50-200); Creatinine,Serum 1.00 mg/dl (0.52-1.04); Estimated Glomerular Filt Rate 53 ml/min (>60); GFR (African American) 65 ML/MIN (>60); Globulin 2.1 g/dL (1.3-3.2); Glucose 93 mg/dl (74-100); Potassium 4.3 mmoL/L (3.5-5.1); Sodium 143 mmol/L (136-145); Total Protein,Serum 6.1 g/dl (6.3-8.2)
[2024-12-31] MEDS: LIDOCAINE 5% TRANSDERMAL PATCH 1 EACH TD (16:33)
[2024-12-31] MEDS: MORPHINE 2MG/ML SYRINGE 2 MG IV (16:34)
[2024-12-31] MEDS: ONDANSETRON 4MG/2ML VIAL 4 MG IV (16:34)
[2024-12-31 16:39] LABS: NT Pro Brain Natriuretic Pep. 206 pg/mL (0-450)
[2024-12-31 17:10] LABS: Troponin I < 0.01 ng/ml (0.00-0.034)
[2024-12-31 17:20] LABS: Hepatitis C Ab Qual. W/ RFX NEGATIVE (Negative)
[2024-12-31 17:30] VITALS: BP 146/70; PULSE 66; RESP 15; TEMP 36.8; O2SAT 97
[2024-12-31 17:43] VITALS: BP 146/70; PULSE 61; RESP 12; TEMP 36.7; O2SAT 98
== END 2024-12-31 17:43 | disposition home or self-care (01) ==
PROVIDERS: Physician Assistant; Emergency Provider Student in an Organized Health Care Education/Training Program; PCP Family Medicine
DX: M54.12 Radiculopathy, cervical region (principal); M50.30 Other cervical disc degeneration, unspecified cervical region; R42 Dizziness and giddiness
CPT/HCPCS: 72125; 73030; 80053; 83880; 84484; 85025; 86803; 87389; 93005; 96374; 96375; 99285; J2270; J2405